=== PATIENT | female | born 1980 | race Native Hawaiian/Other Pacific Islander ===

== ENCOUNTER → 2018-08-30 | Outpatient (CLI) | payer BC | LOC: COL.RAD 13:05 | DX: G40.209 Localization-related (focal) (partial) symptomatic epilepsy and epileptic syndromes with complex partial seizures, not intractable, without status epilepticus (principal); I63.89 Other cerebral infarction | CPT/HCPCS: A9585 ==

== ENCOUNTER → 2018-09-07 | Outpatient (CLI) | payer BC | LOC: COL.VAS 07:52 | DX: I65.22 Occlusion and stenosis of left carotid artery (principal); I69.314 Frontal lobe and executive function deficit following cerebral infarction; I34.0 Nonrheumatic mitral (valve) insufficiency ==

== ENCOUNTER 2018-09-19 06:34 | Outpatient (CLI) | payer BC ==
[2018-09-19] VITALS (14 sets, daily range): BP systolic 95–123; BP diastolic 52–72; PULSE 42–57; TEMP 97.3
[~2018-09-19] VITALS: Ht 172.7 cm; Wt 68.6 kg
[2018-09-19 07:02] LABS: HEMATOCRIT 42.9 % (37.0-47.0); HEMOGLOBIN 14.2 g/dl (12.5-16.0); MEAN CELL VOLUME 94 fl (80.0-100.0); MEAN CORPUSCULAR HEMOGLOBIN 31 pg (27.0-31.0); MEAN CORPUSCULAR HGB CONC 33 g/dl (33.0-37.0); MEAN PLATELET VOLUME 8.8 fl (7.4-10.4); PLATELET COUNT 359 K/mm3 (130-400); RED BLOOD COUNT 4.59 M/mm3 (4.10-5.30); REDCELL DISTRIBUTION WIDTH-CV 13.1 % (11.5-14.5)
[2018-09-19 07:10] LABS: INR 1.1 (0.8-3.0); PROTHROMBIN TIME 12.3 SECONDS (9.7-12.8)
[2018-09-19 07:11] LABS: CALCIUM 8.8 mg/dL (8.4-10.2); CREATININE, serum 0.61 mg/dL (0.52-1.25); POTASSIUM 3.7 mmol/L (3.4-5.0)
[2018-09-19] MEDS ORDERED: KEPPRA 500MG500 MG PO (07:57)
[2018-09-19] MEDS ORDERED: PLAVIX 75MG TAB75 MG PO (07:58)
== END 2018-09-19 10:38 | disposition home or self-care (01) ==
LOC: COL.RAD 06:34
PROVIDERS: Internal Medicine Cardiovascular Disease
DX: I34.8 Other nonrheumatic mitral valve disorders (principal); R93.1 Abnormal findings on diagnostic imaging of heart and coronary circulation
CPT/HCPCS: J2250; J3010